=== PATIENT | male | born 1960 | race Asian ===

== ENCOUNTER 2017-06-29 07:00 | Day surgery (SDC) | payer OTHER ==
[2017-06-29 07:45] VITALS: BMI 34.1
[2017-06-29] MEDS ORDERED: PROPOFOL 20 ML ONE ×2 (08:04)
[2017-06-29] MEDS ORDERED: LIDOCAINE HCL 2% (20ML MULTI-DOSE VIAL) NR ONE (08:04)
[2017-06-29] MEDS ORDERED: MIDAZOLAM HCL 2 MG/2 ML SINGLE DOSE VIAL ONE (08:05)
[2017-06-29 08:28] VITALS: TEMP 98.2
[2017-06-29 08:57] VITALS: BP 106/66; PULSE 59
--- NOTE | 2017-07-02 11:30 | PATH ---
Surgical Pathology Report Patient Name: VEDA HERRERA [facility]. Rec. #: [id number] /Age/Gender: 1960 (Age: 56) / F Account: [id number] Location: U-ENDOSCOPY Taken: 06/29/2017 Received: 06/29/2017 Reported: 07/02/2017 Physicians: Thalia Costa M.D. Specimen(s) Received A: 2ND PORTION DUODENUM AND BULB BIOPSY B: BX ANTRUM Clinical History Abdominal pain Gastritis Final Diagnosis A. DUODENUM, SECOND PORTION AND BULB, BIOPSY: DUODENAL MUCOSA WITH MILD CHRONIC INFLAMMATION AND FOCAL ANASTASIYA'S GLANDS HYPERPLASIA. NO HISTOLOGIC EVIDENCE OF GLUTEN SENSITIVE ENTEROPATHY (CELIAC DISEASE). B. STOMACH, ANTRUM, BIOPSY: A. GASTRIC ANTRAL AND OXYNTIC MUCOSA WITH MILD TO MODERATE CHRONIC GASTRITIS AND MILD REACTIVE GASTROPATHY. IMMUNOSTAIN FOR H. PYLORI IS NEGATIVE FOR ORGANISMS. Electronically Signed Jorge Hope M.D. Gross Description A. Received in formalin, labeled "biopsy duodenum second portion and bulb" are 3 maria, irregular portions of soft tissue measuring 0.2-0.3 cm in greatest dimension. The specimens are submitted in toto in one cassette. B. Received in formalin, labeled "biopsy antrum" are 3 maria, irregular portions of soft tissue measuring 0.2-0.3 cm in greatest dimension. The specimens are submitted in toto in one cassette. [facility]/06/29/2017 [facility]/06/29/2017
== END 2017-06-30 10:30 | disposition home or self-care (01) ==
LOC: EDSEX → JASU-ENDO 07:00
PROVIDERS: ATTEND Internal Medicine Gastroenterology
PROC: 0DB68ZX Excision of Stomach, Via Natural or Artificial Opening Endoscopic, Diagnostic (ICD-10-PCS; 2017-06-29)
PROC: 0DB98ZX Excision of Duodenum, Via Natural or Artificial Opening Endoscopic, Diagnostic (ICD-10-PCS; principal; 2017-06-29 08:00)
DX: R10.13 Epigastric pain (principal); K29.70 Gastritis, unspecified, without bleeding
CPT/HCPCS: 88305-TC